=== PATIENT | female | born 1970 | race Caucasian/White ===

== ENCOUNTER 2018-04-10 16:08 | Emergency (ER) | payer SELFPAY ==
[2018-04-10] MEDS ORDERED: AMLODIPINE BESYLATE 10 MG TABLET PO ONE (16:41)
[2018-04-10] MEDS ORDERED: BUPIVACAINE HCL 0.5%-EPI 1:200000 INJ/PF 30 ML VIAL INJ ONE (16:41)
[2018-04-10] MEDS ORDERED: CLINDAMYCIN HCL 150 MG CAPSULE PO ONE (16:42)
--- NOTE | 2018-04-10 17:05 | ER Document Report ---
ED General - General Chief Complaint: Toothache Stated Complaint: TOOTH PAIN Time Seen by Provider: 04/10/18 16:31 - HPI Patient complains to provider of: Right tooth pain Notes: Patient coming in for right lower tooth pain. Patient states ongoing for the last few days noticed yesterday a small pus pocket on the outside edge of the tooth that ruptured after eating some food. Patient has an appointment to see a dentist however this is not until next Tuesday. Patient upon being triage noticed that her blood pressure was elevated. Patient states she does not have a history of elevated blood pressure however denies any head pain chest pain abdominal pain dizziness fevers chills nausea vomiting diarrhea. Patient states hypertension does run in her family. Denies any recent antibiotics - Related Data Allergies/Adverse Reactions: acetaminophen [From Darvocet-N 100] Allergy (Verified 04/10/18 16:10) Penicillins Allergy (Verified 04/10/18 16:10) propoxyphene [From Darvocet-N 100] Allergy (Verified 04/10/18 16:10) Past Medical History - Social History Smoking Status: Current Every Day Smoker Chew tobacco use (# tins/day): No Frequency of alcohol use: None Drug Abuse: None Family History: Reviewed & Not Pertinent Patient has suicidal ideation: No Patient has homicidal ideation: No Renal/ Medical History: Denies: Hx Peritoneal Dialysis Past Surgical History: Reports: Hx Orthopedic Surgery - R leg Review of Systems - Review of Systems Constitutional: No symptoms reported EENT: Other - Dental pain Cardiovascular: No symptoms reported Respiratory: No symptoms reported Gastrointestinal: No symptoms reported Genitourinary: No symptoms reported Female Genitourinary: No symptoms reported Musculoskeletal: No symptoms reported Skin: No symptoms reported Hematologic/Lymphatic: No symptoms reported Neurological/Psychological: No symptoms reported Physical Exam - Vital signs Interpretation: Hypertensive - General General appearance: Appears well, Alert - HEENT Head: Normocephalic, Atraumatic Eyes: Normal Conjunctiva: Normal Cornea: Normal Pupils: PERRL Ears: Normal External canal: Normal Mouth/Lips: Caries Neck: Normal Notes: Diffuse dental disease tooth #29 shows signs of gingival cellulitis - Respiratory Respiratory status: No respiratory distress Chest status: Nontender Breath sounds: Normal Chest palpation: Normal - Cardiovascular Rhythm: Regular Heart sounds: Normal auscultation Murmur: No - Abdominal Inspection: Normal Distension: No distension Bowel sounds: Normal Tenderness: Nontender Organomegaly: No organomegaly - Back Back: Normal, Nontender - Extremities General upper extremity: Normal inspection, Nontender, Normal color, Normal ROM , Normal temperature General lower extremity: Normal inspection, Nontender, Normal color, Normal ROM , Normal temperature, Normal weight bearing. No: Isaac's sign - Neurological Neuro grossly intact: Yes Cognition: Normal Orientation: AAOx4 Lizzy Coma Scale Eye Opening: Spontaneous Lizzy Coma Scale Verbal: Oriented Lizzy Coma Scale Motor: Obeys Commands Lizzy Coma Scale Total: 15 Speech: Normal Motor strength normal: LUE, RUE, LLE, RLE Sensory: Normal - Psychological Associated symptoms: Normal affect, Normal mood - Skin Skin Temperature: Warm Skin Moisture: Dry Skin Color: Normal Course - Re-evaluation Re-evalutation: 04/10/18 21:01 Dental block was performed of the tooth. Patient did receive good analgesia. Patient was started on clindamycin because of her elevated blood pressure and the need for her dental procedure to be performed I will go ahead and start the patient on a low-dose of amlodipine to help control her blood pressure. Patient information will be given to our social work professor for further follow-up. Patient was grateful for her care patient was discharged home Procedures - Additional Procedures dental block Notes: 04/10/18 21:03 Inferior alveolar dental block was performed using 0.5% Sensorcaine with epi on the right side. 25-gauge needle was inserted and the posterior gumline with no aspiration of blood instilled 2.5 cc of Marcaine good analgesia performed patient tolerated well Discharge - Discharge Clinical Impression: Pain, dental Hypertension Qualifiers: Hypertension type: unspecified Qualified Code(s): I10 - Essential (primary) hypertension Condition: Good Disposition: HOME, SELF-CARE Instructions: [facility], Clindamycin ([facility]), Toothache ([facility]) Additional Instructions: Please take antibiotics as prescribed. Your blood pressure is slightly elevated would recommend starting on amlodipine please make sure you follow-up with a dentist return to ER symptoms worsen Prescriptions: Amlodipine Besylate [Norvasc 5 mg Tablet] 5 mg PO DAILY #30 tablet Clindamycin HCl [Cleocin HCl] 150 mg PO QID #40 capsule Ibuprofen [Motrin 800 mg Tablet] 800 mg PO Q8H PRN #30 tab PRN Reason: Forms: Return to Work
== END 2018-04-10 17:04 | disposition home or self-care (01) ==
LOC: ER 16:08
DX: K08.89 Other specified disorders of teeth and supporting structures (principal); I10 Essential (primary) hypertension; F17.200 Nicotine dependence, unspecified, uncomplicated
CPT/HCPCS: 99282; J3490